=== PATIENT | male | born 1940 | race Caucasian/White ===

== ENCOUNTER → 2016-10-29 | Outpatient (CLI) | payer OTHER ==
--- NOTE | 2016-10-29 13:04 | DX ---
PA and lateral chest History: Cough for 10 days with intermittent fever. Comparison: PA and lateral chest August 14, 2009. Findings: There is moderate peribronchial thickening with streaky bibasilar opacities. There is mild hyperexpansion with no visible pneumothorax. Blunting of the posterior costophrenic angles could be r elated to trace effusions or atelectasis. Heart size is normal. Degenerative change is present in the spine with stable mild anterior height reduction of multiple midthoracic vertebral bodies. Impression: Bronchitis with streaky basilar opacities that could be related to atelectasis or early p neumonia.
== END ==
LOC: BMCIMAGING 12:31
PROVIDERS: ATTEND Family Medicine
DX: J40 Bronchitis, not specified as acute or chronic (principal)

== ENCOUNTER 2016-11-13 17:41 | Inpatient (IN) | payer OTHER ==
--- NOTE | 2016-11-13 17:57 | EDPHY ---
H & P Time Seen by Provider: 11/13/16 17:50 HPI/ROS: CHIEF COMPLAINT: Left leg swelling and pain. HISTORY OF PRESENT ILLNESS: The patient is a 76-year-old male who presents with gradually increasing left leg swelling over the past few weeks, worsening in the last 3 or 4 days. This is associated with pain in his calf and thigh. He believes this swelling may have began after he slammed his foot into something. He denies chest pain, shortness of breath, fever, or other complaints. He recently finished a 10-day course of antibiotics. REVIEW OF SYSTEMS: A complete 10-point review of systems was performed and is negative except for those items mentioned in the HPI. Past Medical/Surgical History: Superficial thrombophlebitis Social History: Smoker. Smoking Status: Heavy smoker Physical Exam: General Appearance: Alert, pleasant Eyes: Pupils equal and round, no conjunctival pallorr ENT, Mouth: Mucous membranes moist Neck: Normal inspection Respiratory: Lungs are clear to auscultation Cardiovascular: Regular rate and rhythm Gastrointestinal: Abdomen is soft and non-tender Neurological: A&O, nonfocal exam Skin: Warm and dry, no rash Extremities: Left lower extremity swelling and tenderness involving thigh and calf Psychiatric: Mood and affect normal Constitutional: Initial Vital Signs Temperature (C) 36.2 C 11/13/16 17:44 Heart Rate 106 H 11/13/16 17:44 Respiratory Rate 16 11/13/16 17:44 Blood Pressure 150/90 H 11/13/16 17:44 O2 Sat (%) 92 11/13/16 17:44 O2 Delivery Mode Room Air Allergies/Adverse Reactions: unknown antibiotic Allergy (Uncoded 11/13/16 20:15) Home Medications: Medication Instructions Recorded Apixaban [Eliquis] 5 mg PO BID #0 tab 11/16/16 Apixaban [Eliquis] 10 mg PO BID #0 tab 11/16/16 Medical Decision Making - Diagnostics Imaging: Study: Ultrasound of the: Left lower extremity Indication: Pain, swelling. Results: Positive Extensive left leg deep venous thrombosis from the left iliac vein through the common femoral vein, femoral vein, popliteal vein, and calf veins. The study was read by the radiologist, Dr. Elam. I viewed the images myself on the PACS system. ED Course/Re-evaluation: This pt presents with LLE swelling, likely secondary to DVT. No clinical suspicion for PE. Left lower extremity ultrasound ordered. 1845: Per Dr. Elam, the patient has a large DVT running the length of his leg and is an IR candidate. Results d/w pt. IR has been paged. Patient will receive a Heparin bolus and be placed on a Heparin drip based on weight-based protocol. 1912: Consulted with Dr. Branch, hospitalist. He accepts admission. 1923: Consulted with Dr. Castillo, interventional radiology. She recommends keeping the patient NPO after midnight for possible thrombolysis. She will see the patient tomorrow. Differential Diagnosis: includes though not limited to PE, cellulitis, arterial compromise, compartment syndrome. - Data Points Laboratory Results: Laboratory Results 11/13/16 18:52 11/13/16 18:52 Medications Given: Discontinued Medications Apixaban (Eliquis) 5 mg PO BID [facility] Stop: 05/15/17 15:29 Last Admin: 11/16/16 17:02 Dose: 5 mg Fondaparinux (Arixtra) 7.5 mg SC DAILY DEBBIE Stop: 05/14/17 09:59 Last Admin: 11/16/16 11:11 Dose: Not Given Heparin Sodium (Porcine) (Heparin Injection) 0 unit IVP EDNOW ONE PRN Reason: Protocol Stop: 11/13/16 19:13 Last Admin: 11/13/16 19:27 Dose: 5,000 units Heparin Sodium (Porcine) (Heparin Injection) 0 unit IVP ONCE ONE PRN Reason: Protocol Stop: 11/13/16 20:27 Last Admin: 11/13/16 22:32 Dose: Not Given Heparin Sodium (Porcine) (Heparin 50 Units/Ml (Premix)) 500 mls @ 0 mls/hr IV EDNOW ONE; Per Protocol PRN Reason: Protocol Stop: 11/13/16 19:13 Last Admin: 11/13/16 19:28 Dose: 500 mls Heparin Sodium (Porcine) (Heparin 50 Units/Ml (Premix)) 500 mls @ 0 mls/hr IV CONT DEBBIE; Per Protocol PRN Reason: Protocol Stop: 05/12/17 20:29 Last Admin: 11/14/16 15:12 Dose: 500 mls Sodium Chloride (Ns) 1,000 mls @ 75 mls/hr IV CONT DEBBIE Stop: 05/13/17 11:59 Last Admin: 11/14/16 22:36 Dose: 1,000 mls Alteplase, Recombinant 5 mg/ (Sodium Chloride) 100 mls @ 0 mls/hr IV CONT DEBBIE; Per Protocol PRN Reason: Protocol Stop: 05/13/17 19:59 Last Admin: 11/14/16 22:37 Dose: 100 mls Miscellaneous Information (Patch Removal) 1 ea TD DAILY21 DEBBIE Stop: 05/14/17 20:59 Last Admin: 11/15/16 22:03 Dose: 1 ea Nicotine (Nicoderm Cq) 21 mg TD DAILY DEBBIE Stop: 05/12/17 20:29 Last Admin: 11/16/16 11:11 Dose: Not Given Nicotine (Nicoderm Cq) 21 mg TD ONCE ONE Stop: 11/16/16 14:31 Last Admin: 11/16/16 14:24 Dose: 21 mg Departure - Departure Disposition: [facility] Acute Clinical Impression: DVT (deep venous thrombosis) Qualifiers: Qualifier Code: (I82.402) Acute embolism and thrombosis of unspecified deep veins of left lower extremity Condition: Fair Report Scribed for: Lilia Fields Report Scribed by: Hugh Garcia Date of Report: 11/13/16 Time of Report: 17:54 Physician Review and Approval Statement: 11/13/16 17:54 Portions of this note were transcribed by a medical records administrator. I personally performed a history, physical exam, medical decision making, and confirmed accuracy of information the transcribed note.
--- NOTE | 2016-11-13 18:48 | US ---
Ultrasound Venous Duplex/Doppler left Leg History: Pain and swelling. Findings: Ultrasound venous duplex and Doppler imaging of the common femoral vein, femoral vein, pop liteal vein, calf veins, greater saphenous vein origin, and contralateral common femoral vein demonst rates positive occlusive thrombus involving the entire left leg from the left common femoral vein thr ough the superficial femoral vein, popliteal vein and calf veins. There is also thrombus in left exte rnal iliac vein noted. Impression: Positive Extensive left leg deep venous thrombosis from the left iliac vein through the c ommon femoral vein, femoral vein, popliteal vein, and calf veins. Findings and recommendations discussed with Emergency Department physician, Dr. Lilia Fields at 1842 hour, today. Final report concurs with initial preliminary interpretation.
[2016-11-13 19:00] LABS: % IMMATURE GRANULYOCYTES 0.6 % (0.0-1.1); ABSOLUTE IMMATURE GRANULOCYTES 0.07 10^3/uL (0.00-0.10); ADD DIFF? NO; ADD MORPH? NO; ADD SCAN? NO; ATYPICAL LYMPHOCYTE FLAG 10 (0-99); FRAGMENT RBC FLAG 0 (0-99); HEMATOCRIT 46.7 % (40.0-51.0); HEMOGLOBIN 15.7 g/dL (13.7-17.5); LEFT SHIFT FLG 0 (0-99); LIPEMIA HEMOLYSIS FLAG 80 (0-99); MEAN CELL HEMOGLOBIN 31.4 pg (27.9-34.1); MEAN CELL HEMOGLOBIN CONCENTR. 33.6 g/dL (32.4-36.7); MEAN CELL VOLUME 93.4 fL (81.5-99.8); MEAN PLATELET VOLUME 10.3 fL (8.7-11.7); PLATELET CLUMPS FLAG 0 (0-99); PLATELET COUNT 96 10^3/uL (150-400); RED CELL DISTRIBUTION WIDTH 13.8 % (11.5-15.2)
[2016-11-13] MEDS ORDERED: HEPARIN/DEXTROSE 500 ML IV ONE (19:12)
[2016-11-13] MEDS ORDERED: HEPARIN 10,000 UNIT/10 ML MDV IVP ONE ×2 (19:12→20:26)
[2016-11-13 19:21] LABS: ANION GAP 10 mEq/L (8-16); CALCIUM 8.9 mg/dL (8.5-10.4); CARBON DIOXIDE 23 mEq/l (22-31); CHLORIDE 106 mEq/L (97-110); GLOMERULAR FILTRATION RATE > 60; GLUCOSE 109 mg/dL (70-100); POTASSIUM 4.9 mEq/L (3.5-5.2); SODIUM 139 mEq/L (134-144)
[2016-11-13 19:25] LABS: INR 0.98 (0.83-1.16); PROTIME(PATIENT) 12.9 SEC (12.0-15.0)
[2016-11-13] MEDS ORDERED: HYDROmorphONE/DILAUDID 1 MG/ML SYR IVP PRN (20:16)
[2016-11-13] MEDS ORDERED: ONDANSETRON 4 MG/2 ML VIAL IVP PRN (20:16)
[2016-11-13] MEDS ORDERED: ONDANSETRON DISINTEGRATING 4 MG TAB PO PRN (20:16)
[2016-11-13] MEDS ORDERED: ACETAMINOPHEN 325 MG TAB PO PRN (20:16)
[2016-11-13] MEDS ORDERED: HEPARIN 10,000 UNIT/10 ML MDV IVP PRN (20:26)
[2016-11-13] MEDS ORDERED: HEPARIN/DEXTROSE 500 ML IV SCH (20:30)
--- NOTE | 2016-11-13 21:29 | GHP ---
[f rep st] HISTORY AND PHYSICAL DATE OF ADMISSION: 11/13/2016 HISTORY OF PRESENT ILLNESS: The patient is a pleasant, 76-year-old gentleman with minimal past medic al history, a 55-year smoking history, presents with increased swelling of his left leg over the last 3 or 4 days to the point where it has been difficult walking. It has been painful. He has had no c hest pain, no hemoptysis. His shortness of breath is chronic from his longstanding smoking, but it i s no worse than usual. He has had no pleuritic pain. The patient denies recent weight loss, night sweats, etc. REVIEW OF SYSTEMS: Complete 10-point review of systems conducted and negative except as noted in the HPI. PAST MEDICAL HISTORY: 1. Longstanding tobacco use. 2. Recent upper respiratory illness. ALLERGIES: An unknown antibiotic which caused skin to peel off his penis. MEDICATIONS: He takes no prescription medicines. SOCIAL HISTORY: He is an artist. He smokes, minimal alcohol. FAMILY HISTORY: Parents . PHYSICAL EXAMINATION: VITAL SIGNS: Temp 36.2, blood pressure 150/90, pulse 106, now 86, breathing 1 6 times a minute, 98% on room air. GENERAL: In no acute distress. HEENT: Sclerae anicteric. Orop harynx clear. Mucous membranes moist. NECK: Supple without lymphadenopathy or JVD. LUNGS: Clear to auscultation bilaterally. HEART: S1, S2. ABDOMEN: Soft, nontender, nondistended. LOWER EXTREM ITIES: Without edema. Calves nontender. SKIN: Without rash. NEUROLOGIC: Grossly nonfocal. EXTR EMITIES: His left lower extremity is edematous. There is palpable decreased dorsalis pedis pulse. It is warm. It is not erythematous. LABS: White count 11.2, hematocrit 46. Platelets are 96,000. Coags are normal. Sodium 139, potass ium 4.9, chloride 106, bicarb 23, BUN 19, creatinine 1.0, glucose 109. DVT study shows significant l eft leg DVT from the left iliac vein to the common femoral vein and popliteal vein and calf veins. I have discussed the case with Dr. Lilia Fields. ASSESSMENT AND PLAN: This is a 76-year-old gentleman with longstanding smoking history, presents wit h DVT. 1. DVT. Started on a heparin drip. Will continue this. IR has been consulted. Will see him in th e morning for possible local thrombolysis. He will be n.p.o. past midnight. 2. Longstanding smoking history in the setting of DVT. The patient has a DVT, a longstanding smokin g history. This is often a presentation of cancer. Discussed risks and benefits of chest imaging. At this time, we will proceed with a contrast and chest CT to evaluate for mass. He had a recent gianfranco st x-ray which according to him was unremarkable. 3. Prophylaxis. Patient is therapeutically anticoagulated. 4. Tobacco use. He is asking for a nicotine patch. This I will give him and also give him nicotine gum. 5. Fairly heavy smoker. 6. Leukocytosis mild. 7. Thrombocytopenia, no prior for comparison. He is not actively bleeding. Will follow while on he nader therapy. /[id number]/MODL
[2016-11-13] MEDS: NICOTINE 21 MG/24 HR PATCH TD SCH (22:33)
[2016-11-14 03:31] LABS: % IMMATURE GRANULYOCYTES 0.7 % (0.0-1.1); ABSOLUTE IMMATURE GRANULOCYTES 0.07 10^3/uL (0.00-0.10); ADD DIFF? NO; ADD MORPH? NO; ADD SCAN? NO; ATYPICAL LYMPHOCYTE FLAG 10 (0-99); FRAGMENT RBC FLAG 0 (0-99); HEMATOCRIT 39.4 % (40.0-51.0); HEMOGLOBIN 13.2 g/dL (13.7-17.5); LEFT SHIFT FLG 0 (0-99); LIPEMIA HEMOLYSIS FLAG 80 (0-99); MEAN CELL HEMOGLOBIN 31.6 pg (27.9-34.1); MEAN CELL HEMOGLOBIN CONCENTR. 33.5 g/dL (32.4-36.7); MEAN CELL VOLUME 94.3 fL (81.5-99.8); MEAN PLATELET VOLUME 9.9 fL (8.7-11.7); PLATELET CLUMPS FLAG 0 (0-99); PLATELET COUNT 91 10^3/uL (150-400); RED BLOOD CELL COUNT 4.18 10^6/uL (4.40-6.38); RED CELL DISTRIBUTION WIDTH 13.9 % (11.5-15.2)
[2016-11-14 03:42] LABS: INR 1.12 (0.83-1.16); PROTIME(PATIENT) 14.3 SEC (12.0-15.0)
[2016-11-14 04:32] LABS: ANION GAP 9 mEq/L (8-16); CALCIUM 8.4 mg/dL (8.5-10.4); CARBON DIOXIDE 25 mEq/l (22-31); CHLORIDE 106 mEq/L (97-110); GLOMERULAR FILTRATION RATE > 60; GLUCOSE 118 mg/dL (70-100); SODIUM 140 mEq/L (134-144)
[2016-11-14] MEDS: NICOTINE 21 MG/24 HR PATCH TD SCH (08:29)
[2016-11-14] MEDS ORDERED: IOPAMIDOL (ISOVUE-300) 100 ML BTL IV ONE ×2 (10:47→20:03)
--- NOTE | 2016-11-14 11:59 | HOSPPROG ---
Hospitalist Progress Note Assessment/Plan: #LLE DVT: LEFT ILIAC VEIN TO COMMON FEMORAL VEIN, POPLITEAL VEIN, CALF VEIN -HEPARIN DRIP -IR (DR FARFAN) TO SEE FOR LYSIS OF CLOT -MALIGNANCY SCREEN GIVEN HEAVY TOBACCO USE #TOBACCO USE: -NICOTINE REPLACEMENT -TOBACCO CESSATION COUNSELING #THROMBOCYTOPENIA: -STABLE, MONITOR CLOSELY S: NO O/N EVENTS NPO O: VSS NAD AAOX3 RRR CTAB S/NT/NT LEFT SIDED LE EDEMA LABS: HGB: 91 Objective: Vital Signs Temp Pulse Resp BP Pulse Ox 36.4 C 69 12 131/93 H 90 L 11/14/16 11:29 11/14/16 11:29 11/14/16 11:29 11/14/16 11:29 11/14/16 11:29 Laboratory Results 11/14/16 03:15 11/14/16 03:15 11/13/16 11/14/16 11/15/16 05:59 05:59 05:59 Intake Total 10 Balance 10 PT 14.3 SEC (12.0-15.0) 11/14/16 03:15 INR 1.12 (0.83-1.16) 11/14/16 03:15 ICD10 Worksheet Patient Problems: Problems Problem Status Diagnosed DVT (deep venous thrombosis) Acute
--- NOTE | 2016-11-14 12:20 | CT ---
CT Chest With Contrast Indication: 76-year-old man with long-standing history of smoking. Evaluate for mass. History of DVT. Technique: 5 mm thick collimated slices were obtained through the chest following uneventful adminis tration of 90 mL Isovue-300. Sagittal multiplanar reconstructions were performed of the thoracic spin e. Dose reduction techniques were utilized. Comparison: Two view chest dated October 29, 2016. Findings: The central pulmonary arterial system is widely patent. No saddle embolism. Small volume of nonocclusive subsegmental clot is present in bilateral lower lobes. The thoracic aorta has normal ca liber with moderate to large volume of calcified and noncalcified atheroma. Origin of the great vesse ls is widely patent. The heart size is normal with at least 2 vessel calcified coronary plaque. No mass or enlarged lymph node. No pericardial or pleural effusion. Lung windows reveal diffuse mild peribronchial thickening and minimal centrilobular emphysema in the upper lung zones. Subpleural groundglass and reticular abnormality is present bilaterally in the lowe r lung zones, more so right than left. An equivocal band of atelectasis versus 2.0 x 1.5 cm groundgla ss nodule is present in the posterior segment right lower lobe on image 174 of series 4. A probable b enign 0.4 x 0.4 cm subpleural nodule resides in the anterior segment left upper lobe on image 85 of s eries 4. Impression: 1. Small volume of acute pulmonary thromboembolic disease in the lower lung zones. 2. No mass or lymphadenopathy. 3. Indeterminate 2 cm right lower lobe groundglass nodule versus atelectasis. Recommend follow up non contrast chest CT in 6 months. 4. Minimal emphysema and bronchiolitis. Atelectasis versus minimal interstitial lung disease in the r ight base. Comment: The results were discussed with Ky Singh, the hospitalist, at 12:10 p.m. on November 14, 2016.
[2016-11-14] MEDS: NS 1,000 ML IV SCH ×2 (13:18→22:36)
[2016-11-14] MEDS ORDERED: FLUMAZENIL 0.5 MG/5 ML MDV IVP ONE (18:47)
[2016-11-14] MEDS ORDERED: NALOXONE HCL 0.4 MG/ML INJ ONE (18:48)
[2016-11-14] MEDS ORDERED: fentaNYL 100 MCG/2 ML INJ ONE (18:48)
[2016-11-14] MEDS ORDERED: MIDAZOLAM 2 MG/2 ML VIAL ONE (18:48)
[2016-11-14] MEDS ORDERED: ALTEPLASE 5 MG in NS 100 ML IVP SCH (19:30)
[2016-11-14] MEDS ORDERED: LORazepam 1 MG TAB PO PRN (20:00)
[2016-11-14] MEDS ORDERED: ALTEPLASE 5 MG in NS 100 ML IV SCH (20:00)
[2016-11-14] MEDS ORDERED: HEPARIN/DEXTROSE 500 ML IV SCH (20:00)
[2016-11-14] MEDS ORDERED: PROMETHAZINE HCL 25 MG/ML INJ IVP PRN (20:00)
--- NOTE | 2016-11-14 20:00 | POSTOPPROG ---
Post Op Note Date of Operation: 11/14/16 Surgeon: Isabel Castillo Anesthesia: IV Sedation Pre-op Diagnosis: LLE DVT Post-op Diagnosis: SAME Indication: LLE ulcer/cellulitis Procedure: DVT lysis LLE Findings: relatively soft clot traversed. Inf/Abcess present in the surg proc area at time of surgery?: No Depth: Superfical (Skin SQ) EBL: Minimal
[2016-11-15 05:37] LABS: % IMMATURE GRANULYOCYTES 0.5 % (0.0-1.1); ABSOLUTE IMMATURE GRANULOCYTES 0.06 10^3/uL (0.00-0.10); ADD DIFF? NO; ADD MORPH? NO; ADD SCAN? NO; ATYPICAL LYMPHOCYTE FLAG 10 (0-99); FRAGMENT RBC FLAG 0 (0-99); HEMATOCRIT 39.3 % (40.0-51.0); HEMOGLOBIN 13.1 g/dL (13.7-17.5); LEFT SHIFT FLG 0 (0-99); LIPEMIA HEMOLYSIS FLAG 80 (0-99); MEAN CELL HEMOGLOBIN 31.2 pg (27.9-34.1); MEAN CELL HEMOGLOBIN CONCENTR. 33.3 g/dL (32.4-36.7); MEAN CELL VOLUME 93.6 fL (81.5-99.8); MEAN PLATELET VOLUME 9.2 fL (8.7-11.7); PLATELET CLUMPS FLAG 0 (0-99); PLATELET COUNT 59 10^3/uL (150-400); RED CELL DISTRIBUTION WIDTH 14.2 % (11.5-15.2)
[2016-11-15 06:00] LABS: INR 1.54 (0.83-1.16); PROTIME(PATIENT) 18.5 SEC (12.0-15.0)
[2016-11-15 06:01] LABS: APTT 49.7 SEC (23.0-38.0)
[2016-11-15 06:15] LABS: ANION GAP 3 mEq/L (8-16); CALCIUM 7.7 mg/dL (8.5-10.4); CARBON DIOXIDE 23 mEq/l (22-31); CHLORIDE 111 mEq/L (97-110); CREATININE 0.9 mg/dL (0.7-1.3); GLOMERULAR FILTRATION RATE > 60; GLUCOSE 98 mg/dL (70-100); POTASSIUM 4.2 mEq/L (3.5-5.2); SODIUM 137 mEq/L (134-144)
[2016-11-15] MEDS ORDERED: NALOXONE HCL 0.4 MG/ML INJ ONE (09:58)
[2016-11-15] MEDS ORDERED: fentaNYL 100 MCG/2 ML INJ ONE (09:59)
[2016-11-15] MEDS ORDERED: MIDAZOLAM 2 MG/2 ML VIAL ONE (09:59)
[2016-11-15] MEDS ORDERED: NS 1,000 ML IV SCH (10:00)
[2016-11-15] MEDS ORDERED: IOPAMIDOL (ISOVUE-300) 100 ML BTL IV ONE (10:14)
--- NOTE | 2016-11-15 11:01 | HOSPPROG ---
Hospitalist Progress Note Assessment/Plan: #LLE DVT: LEFT ILIAC VEIN TO COMMON FEMORAL VEIN, POPLITEAL VEIN, CALF VEIN -S/P IR LYSIS BY DR. FARFAN -ON ARIXTRA, HEPARIN STOPPED DUE TO THROMBOCYTOPENIA -MALIGNANCY SCREEN GIVEN HEAVY TOBACCO USE: CT CHEST NEGATIVE. COULD CONSIDER OBTAINING CT ABD #THROMBOCYTOPENIA ON ADMISSION. UNCLEAR WHY HE HAD THIS ON ADMISSION, UNCLEAR CHRONICITY -ACUTE DROP (PLATELETS 59 FROM 96) APPROX 36 HRS AFTER STARTING HEPARIN -ETIOLOGY OF ACUTE DROP IN UNCERTAIN, SEE BELOW #ELEVATED PT, INR, LOW FIBRINOGEN C/W POSSIBLY DIC PROFILE #TOBACCO USE: -NICOTINE REPLACEMENT -TOBACCO CESSATION COUNSELING PLAN: I DISCUSSED THE ACUTE PLATELET DROP WITH HEMATOLOGY (DR. VILLATORO) WHO IS NOT FORMALLY CONSULTED. GIVEN THE TIMING OF THE DROP, THE SUSPICION FOR HIT IS LOW. IN EITHER CASE, WE WILL SEND A HIT AB AND START ARIXTRA. THE COAGULATION PANEL IS SUGGESTIVE OF EARLY DIC. FOR THE ETIOLOGY, IT IS LIKELY CONSUMPTION OF CLOTTING FACTORS DUE TO THE LYSIS. WILL RECHECK COAGULATION/FIBRINOGEN PANEL THIS AFTERNOON. HE DOES NOT HAVE ANY EVIDENCE OF BLEEDING OR FURTHER THROMBOSIS. HE WILL BE GOING BACK WITH IR THIS MORNING FOR F/U. HE DOES NOT HAVE ANY EVIDENCE OF INFECTION OR BM SUPPRESSION ANOTHER POSSIBILITY IS MALIGNANCY, BUT WOULD HAVE EXPECTED THE CLOTTING FACTORS TO BE ABNORMAL ON ADMISSION. HIS CHEST CT HAS BEEN NEGATIVE. HE HAS BEEN NPO, UPON ADDITIONAL HYDRATION, WILL ORDER CT ABD/PELVIS FOR SCREENING S: LOW PLATELETS FEELS GOOD O: VSS NAD AAOX3 RRR CTAB S/NT/NT NO LE EDEMA LABS:REVIEWED TOTAL CARE TIME IS 50 MINUTES Objective: Vital Signs Temp Pulse Resp BP Pulse Ox 36.8 C 80 18 124/73 H 92 11/15/16 07:44 11/15/16 07:44 11/15/16 07:44 11/15/16 07:44 11/15/16 07:44 Laboratory Results 11/15/16 05:30 11/15/16 05:30 11/14/16 11/15/16 11/16/16 05:59 05:59 05:59 Intake Total 10 2001.8 Output Total 1050 Balance 10 951.8 PT 18.5 SEC (12.0-15.0) H 11/15/16 05:30 INR 1.54 (0.83-1.16) H 11/15/16 05:30 ICD10 Worksheet Patient Problems: Problems Problem Status Diagnosed DVT (deep venous thrombosis) Acute
[2016-11-15] MEDS: FONDAPARINUX SODIUM 7.5 MG/0.6 ML SYR SC SCH (11:14)
[2016-11-15] MEDS: NICOTINE 21 MG/24 HR PATCH TD SCH (11:16)
[2016-11-15] MEDS ORDERED: PATCH REMOVAL 1 EA PATCH TD SCH (21:00)
--- NOTE | 2016-11-15 22:07 | IR ---
Lysis Follow up Indication: Post 16-hour TPA lysis for left lower extremity DVT. Technique: Sidearm of the sheath is attached to contrast, and venogram was performed. Afterwards, a ll catheters and wires are removed, and hemostasis was obtained using pressure holding. Findings: There is basically complete clot dissolution of the lysed segment. There is irregularity at the mid to distal femoral segment, with decreased caliber. However, there is sufficient collatera lization to the proximally wide open veins. There is still clot in the distal SFV and popliteal segm ent, as well as the calf. Fluoroscopy: 0.7 minutes, 4 images. Impressions 1. Complete clot dissolution in the lysed segment. 2. No underlying stenosis identified. 3. Rapid antegrade flow. Plan: Compression stocking; anticoagulation; walking.
--- NOTE | 2016-11-15 22:18 | IR ---
Left Lower Extremity Venogram DVT Lysis Indication: Extensive left lower extremity DVT. Very active gentleman. Informed Consent: Obtained from the patient. Risks and benefits were discussed. Cross Cutting Measure: Patient's current list of medications including all known prescriptions, over -the-counters, herbals, and vitamin/mineral/dietary supplements are reviewed. Medications' name, dos age, frequency, and route of administration are confirmed. Patient is a non-smoker. Prophylactic Antibiotic: Cefazolin was not ordered and administered for antimicrobial prophylaxis be cause it was not medically necessary. VTE Prophylaxis: There is not an order for VTE prophylaxis to be given within 24 hours of the proced ure end time. VTE prophylaxis was not given because it was not medically necessary. Technique: Patient is placed in prone position. A "timeout" procedure was performed to identify the correct patient and the correct procedure. 1% Xylocaine was used for local anesthetic. All element s of maximal sterile barrier technique, including cap, mask, sterile gown, sterile gloves, large ster ile sheet, hand hygiene, and 2% chlorhexidine for cutaneous antisepsis, followed. Ultrasound evaluation of potential access site was performed. After successfully identifying a paten t vessel, ultrasound guidance was used to puncture the vessel. A permanent recording was created for the patient's record. When ultrasound is used, sterile gel and probe covers are used. Under ultrasound guidance, a clotted popliteal vein was accessed. Wire advancement through the remai nder of the clotted segment was fairly easily accomplished, eventually with wire access obtained at t he level of the iliac vein. Venogram was performed, showing the clot stops at the mid external iliac vein. Over exchange length wire, 40-cm EKOS infusion catheter was advanced, and locked in place. TPA lysis is to be performed overnight. The patient tolerated the procedure well. Medication: 1 mg Versed, 50 mcg fentanyl, 1935 to 1999. Fluoroscopy: 1.4 minutes, 6 images. Impressions 1. Extensive left lower extremity DVT from ankle to mid external iliac vein. 2. TPA lysis to start with 40-cm infusion EKOS catheter.
[2016-11-16 06:01] LABS: HEMATOCRIT 37.2 % (40.0-51.0); HEMOGLOBIN 12.4 g/dL (13.7-17.5); MEAN CELL HEMOGLOBIN 31.4 pg (27.9-34.1); MEAN CELL HEMOGLOBIN CONCENTR. 33.3 g/dL (32.4-36.7); MEAN CELL VOLUME 94.2 fL (81.5-99.8); RED BLOOD CELL COUNT 3.95 10^6/uL (4.40-6.38)
[2016-11-16 06:17] LABS: ANION GAP 2 mEq/L (8-16); CARBON DIOXIDE 22 mEq/l (22-31); CHLORIDE 114 mEq/L (97-110); CREATININE 0.9 mg/dL (0.7-1.3); GLOMERULAR FILTRATION RATE > 60; GLUCOSE 101 mg/dL (70-100); POTASSIUM 4.2 mEq/L (3.5-5.2); SODIUM 138 mEq/L (134-144)
[2016-11-16 11:05] VITALS: BP 145/86; RESP 16; TEMP 98.4
[2016-11-16] MEDS: NICOTINE 21 MG/24 HR PATCH TD SCH (11:11)
[2016-11-16] MEDS: FONDAPARINUX SODIUM 7.5 MG/0.6 ML SYR SC SCH (11:11)
[2016-11-16] MEDS ORDERED: NICOTINE 21 MG/24 HR PATCH TD ONE (14:30)
[2016-11-16 15:17] VITALS: PULSE 85; O2SAT 92
[2016-11-16] MEDS ORDERED: APIXABAN 5 MG TAB PO SCH ×3 (15:30→21:00)
--- NOTE | 2016-11-16 18:42 | PDDCSUM ---
Discharge Summary Discharge Summary: DISCHARGE SUMMARY NOTE DISCHARGE DIAGNOSES: -DVT of the leg, status post thrombolysis -Small bilateral pulmonary emboli -Thrombocytopenia of uncertain etiology, present at the time of admission before heparin -Abnormal CT with possible nodule right lower lobe CONSULTANTS: - Dr. Kvng Magallanes pulmonology PROCEDURES: catheter guided thrombolysis for DVT of leg, successful without any bleeding complications or other complications HOSPITAL COURSE SUMMARY: This patient presented to the hospital with pain and swelling in his leg and was identified to have extensive DVT. He underwent catheter directed thrombolysis which was a successful at reducing pain is swelling and tenderness. He was then started on anticoagulant. He did have low platelets as he arrived at the hospital may decrease somewhat on heparin so this was stopped and was treated with Arixtra. At the time of discharge she is changed to Eliquis. There were no complications. The patient has had no shortness of breath. His pain is resolved and he is up walking in the hallway without difficulty at this time. He is stable for discharge to home. He will be started on Eliquis 10 mg twice daily for week followed by 5 mg twice daily and he is given a card for the starter kit. He is instructed to follow up with Dr. Kvng Magallanes regarding his CT scan of the chest which did show a questionable nodule in the right lower lobe and he will need repeat CT scanning. I reviewed this with the patient and with Dr. Magallanes. MEDICATION CHANGES: Addition of Eliquis twice daily therapy for treatment of DVT FOLLOW-UP PLAN: Follow up with Dr. Magallanes in pulmonology Clinic Greater than 35 minutes bedside and care coordination time today
[2016-11-17 15:40] LABS: HEPARIN INDUCED ANTIBODY Negative (Negative); REACTIVITY 11 % (<20)
== END 2016-11-16 18:46 | disposition home or self-care (01) | DRG 299 ==
LOC: F3E 20:23 → F2N 11-14 14:09 → F3E 11-14 14:13 → F2N 11-14 15:21 → F1N 11-15 20:12
PROVIDERS: ADMIT Internal Medicine; ATTEND Internal Medicine
DX: I82.422 Acute embolism and thrombosis of left iliac vein (principal); I82.412 Acute embolism and thrombosis of left femoral vein; I82.432 Acute embolism and thrombosis of left popliteal vein; I82.442 Acute embolism and thrombosis of left tibial vein; I26.99 Other pulmonary embolism without acute cor pulmonale; D69.6 Thrombocytopenia, unspecified; R91.8 Other nonspecific abnormal finding of lung field; F17.210 Nicotine dependence, cigarettes, uncomplicated
CPT/HCPCS: 85520-90; 86022-90; 96374; C1757; C1769; C1894; J1644; J1652; J2250; J2310; J2997; J3010; Q9967